=== PATIENT | male | born 1955 | race Caucasian/White ===

== ENCOUNTER 2025-09-07 13:12 | Outpatient (OUT) | payer OTHER, SELFPAY ==
--- OUTSIDE RECORDS SUMMARY | 2025-09-07 13:21 | XMS_ITS | Clinical Summary ---
Author Organization [facility] Healthcare Address [address] [place] [address] Care Team Providers Care Network Solutions Architect Name Role Phone Beverly Pinto MD Unavailable Beverly Pinto MD Primary Care Provider [phone] Allergies No known active allergies Medications MedicationSigDispense QuantityRefillsLast FilledStart DateEnd DateStatus lisinopril 40 MG tablet Indications:Essential (primary) hypertensionTAKE 1 TABLET BY MOUTH EVERY DAY IN THE MORNING 100 tablet 5Active tamsulosin (Flomax) 0.4 MG 24 hr capsule Take 0.4 mg by mouth in the morning and 0.4 mg before bedtime.Active fluticasone (Flonase) 50 MCG/ACT nasal spray Indications:Non-seasonal allergic rhinitis due to pollenADMINISTER 1-2 SPRAYS INTO EACH NOSTRIL DAILY SHAKE GENTLY. AFTER USE, CLEAN TIP AND REPLACE CAP 48 mL 1105Active cephalexin (Keflex) 500 MG capsule Twice daily5Active Active Problems ProblemNoted DateDiagnosed DateAbdominal mass04/12/20255246Nxexiavuafvfyk97/10/2025 History of colon xkarqb1704/12/2025Hx of diverticulitis of colon04/12/2025Left lower quadrant pain04/12/2025Rectal /10/2025Renal cyst04/12/2025PH with urinary ojrzeeedrhu35/27/2025Elevated PSA02/27/20258657Xeejvb87/27/2025 Diverticulitis of large intestine without perforation or abscess with bleeding 12/18/2024 Assessment & Plan (05/15/2025 4:48 PM EDT): symptoms resolved. Okay to resume fiber in diet. Advised to schedule with gen sx Benign essential upqzlniorylg78/05/2024 Assessment & Plan (05/15/2025 4:48 PM EDT): good control Mixed tndxnxdjtpogjk00/05/2024Solitary pulmonary wrvygk3311/08/2023Tobacco isykvmwdxe98/05/2024 Encounters DateTypeDepartmentCare UpmiOyasurwbebf05/19/2025 11:30 AM ESTOffice Visit [facility] [address] [facility] [place] [phone] Jessica Stewart NP Acute urinary retention (Primary Dx); Acute kidney psukvc7908/22/2025amboo flowsheet [facility] [address] [place] [facility] [place] [phone] Jessica Stewart NP 08/22/20258307Sjzzfd32/14/2025Orders Only [facility] [address] [place] [facility] [place] [phone] Beverly Pinto MD from Last 3 Months Immunizations ImmunizationAdministration DatesNext DueInfluenza, High Dose Seasonal, Preservative Free07/21/2022Influenza, High-dose Seasonal, Quadrivalent, Preservative Free07/21/2022Influenza, Seasonal, Quadrivalent, Adjuvanted 09/25/2023,08/05/2021,07/07/2020Influenza, injectable, MDCK, preservative free, zckwqkvjlyau90/07/2017Influenza, injectable, quadrivalent, preservative free 08/05/2015Influenza, trivalent, skfvipmwua29/11/2024,06/13/2019,07/07/2018 Pneumococcal Conjugate PCV 13001/12/2019Pneumococcal Polysaccharide PPSV23 07/29/2020Zoster, Bvpgewqqwkn83/11/2019,06/13/2019 Social History Tobacco UseTypesPacks/DayYears UsedDateSmoking Tobacco: Every RrpSqwtdjuirv722 Smokeless Tobacco: NeverAlcohol UseStandard Drinks/WeekCommentsNot Currently0 (1 standard drink = 0.6 oz pure alcohol)PHQ-2AnswerDate RecordedPatient Health Questionnaire-2 Qhdyh504Sex and Gender InformationValueDate RecordedSex Assigned at BirthNot on fileLegal GcnXcca5012/16/2022 6:38 PM EDTGender Identity Not on fileSexual OrientationNot on file Last Filed Vital Signs Vital SignReadingTime TakenCommentsBlood Dnnkqcxm612/80110/22/2024 11:24 AM EST Uhaal582508/22/2025 11:24 AM LTRKuhobzlhlfs60.3 ??C (97.3 ??F)08/22/2025 11:24 AM ESTRespiratory Ozbl432405/15/2025 8:02 AM EDTOxygen Lyuahzjort79%08/22/2025 11:24 AM ESTInhaled Oxygen Concentration--Fuytjz12.8 kg (164 lb 12.8 oz)08/22/2025 11:24 AM TJGWgkefd662.9 cm (6')05/15/2025 8:02 AM EDTBody Mass Index22.35 05/15/2025 8:02 AM EDT Plan of Treatment DateTypeDepartmentCare Team (Latest Contact Info)Qflyesnmmku55/04/2026 9:00 AM ESTOffice Visit [facility] [address] [place] [phone] Beverly Pinto MD [address] [place] [address] Health MaintenanceDue DateLast DoneCommentsCT Mlusgcbdihzt1953FIT-DNA 1953FIT1953FOBT1953Lung Cancer Screening Shared Decision Hcykxd58 1955 6030Ombdepgiquogu1953OVID-19 Vaccine ( season) , 08/29/2021, 12/09/2020Influenza Vaccine (#1)2025 08/14/2024, 09/25/2023, 07/21/2022, Additional history existsMedicare Annual Wellness (AWV), 11/08/2023, 11/08/2023, Additional history gtjppwHjfrfplzqni38/14/373325, 09/04/2015Colorectal Cancer Screening 07/17/2035Pneumococcal Vaccine: 65+ ShegbTuqvohdqx85/26/2020, 01/12/2019 Procedures Procedure NamePriorityDate/TimeAssociated DiagnosisCommentsHM COLONOSCOPYRoutine 07/17/2025 1:05 PM EDTfrom Last 3 Months Results * Hm Colonoscopy (07/17/2025 1:05 PM EDT)Anatomical RegionLateralityModality Other Narrative Authorizing ProviderResult TypeResult StatusBeverly Pinto MDHEALTH MAINTENANCE Final Result from Last 3 Months Insurance Care Teams Team MemberRelationshipSpecialtyStart DateEnd Date Beverly Pinto MD [address] [place] [address] PCP - [facility]10/04/21 Beverly Pinto MD [address] [place] [address] [facility]
[2025-09-07 14:21] LABS: Anion Gap 11.0; Blood Urea Nitrogen 11.0 mg/dL (7.0-18.0); Calcium 9.1 mg/dL (8.5-10.1); Carbon Dioxide 30.0 mmol/L (21.0-32.0); Chloride 104 mmol/L (98-107); Estimated GFR (African America >60 (>=60 mL/min/1.73m^2); Estimated GFR (Non-African Ame 52 (>=60 mL/min/1.73m^2); Glucose 157 mg/dL (74-106); Potassium 4.0 mmol/L (3.5-5.1); Sodium 141 mmol/L (136-145)
[2025-09-07 14:23] LABS: INR 1.09; Partial Thromboplastin Time 30.7 sec (22.3-36.2); Prothrombin Time 11.4 sec (9.0-11.6)
[2025-09-07 14:27] LABS: Hematocrit 42.8 % (42.0-54.0); Hemoglobin 13.9 g/dL (14.0-18.0); Immature Granulocytes Abs Auto 0.02 10^3/uL (0.00-0.03); Immature Granulocytes Pct Auto 0.4 % (0.0-0.5); Lymphocytes Absolute Auto 1.4 10^3/uL (1.2-3.8); Mean Corpuscular HGB Conc 32.5 g/dL (29.9-35.2); Mean Corpuscular Hemoglobin 30.2 pg (25.9-34.0); Mean Corpuscular Volume 92.8 fL (80.0-94.0); Platelet Count 281 10^3/uL (150-450); Red Blood Count 4.61 10^6/uL (4.70-6.10); White Blood Count 5.4 10^3/uL (4.0-11.0)
== END 2025-09-07 13:13 | disposition home or self-care (01) ==
LOC: PST 13:17
PROVIDERS: PCP Family Medicine; Visit Provider Urology
DX: Z01.812 Encounter for preprocedural laboratory examination (principal); N40.1 Benign prostatic hyperplasia with lower urinary tract symptoms
CPT/HCPCS: 36415; 80048; 85025; 85610; 85730

== ENCOUNTER 2025-09-13 11:50 | Day surgery (SDC) | payer OTHER, SELFPAY ==
[2025-09-07 13:46] VITALS: BP 153/87; PULSE 68; TEMP 36.2; O2SAT 96; BMI 20.8
[2025-09-13] VITALS (17 sets, daily range): BP systolic 104–162; BP diastolic 62–104; PULSE 72–88; TEMP 36.1–36.6; O2SAT 92–98; BMI 20.7
[2025-09-13] MEDS: LEVOFLOXACIN 500 MG/100 ML-D5W PREMIX 100 MG IV (14:54)
--- NOTE | 2025-09-13 17:24 | P.URON_ITS ---
Urology Surgery Operative Note Operative Note Procedure Date: 09/13/25 Time Out Performed: yes Pre-op Diagnosis: BPH with LUTS and urinary retention Post-op Diagnosis: same as pre-op Procedures performed: 1. Cystoscopy. 2. Transurethral resection of the prostate. Anesthesia: GETA Primary Surgeon: Tl Suarez Complications: None Estimated blood loss (mL): 25 Findings: Enormous median lobe totally obstructing his bladder outlet and protruding dramatically into the bladder. Specimens: Prostate chips Drains: 24 Nigerian three-way coud? Plaza catheter in the bladder taped to traction and CBI Indications for Procedures: This gentleman has BPH with LUTS and urinary retention. Endoscopy revealed that he had an enormous median lobe coapting anteriorly obstructing his bladder outlet and protruding into the bladder. He now presents for cystoscopy and TURP. He has signed an informed consent after risks were explained. Some of these include bleeding, infection, anesthesia, urinary incontinence both temporary and permanent, erectile dysfunction, persistent urinary retention and retrograde ejaculation along with possible need for other procedures to name a few. Detailed description of Procedure: The patient was brought to the operating room and placed on the operating room table in the supine position. SCDs were placed on the lower extremities and turned on and functioning during the entire case. Timeout was done by all parties in the room. We all agreed upon the patient's identification and the planned procedures for this patient. Genn. anesthesia was then administered. The patient was then repositioned into the modified dorsal lithotomy position. All pressure points were satisfactorily padded. Genitalia were sterilely prepped and draped in usual fashion. I started by passing a 26 Nigerian Olympus resectoscope with a standard bipolar loop electrode per urethra and into the bladder. His enormous median lobe was totally obstructing his bladder outlet. I was unable to identify the ureteral orifices because they were tucked under this capacious median lobe. I started on top of the median lobe and uniformly resected this down to the bladder neck level. This was rather dramatic and there was a very large amount of tissue in the form of chips created from this resection of the median lobe. I resected for over an hour and a half. I was then able to identify the ureteral orifices. These were marked with a loop electrode. I then resected posteriorly from the bladder neck to the veru. Intermittent coagulation had to be done continuously due to bleeding. I used the vaporization loop to maintain hemostasis and to do some resection. The lateral lobes although capacious they were not obstructing. I simply coagulated them because they started bleeding from the scope. The [employer] evacuator was used to get all of the chips out of the bladder. These were sent for permanent sections. Upon completion the prostate and bladder neck were wide open and there was no bleeding from the prostate. There were no chips remaining in the bladder. The ureteral orifices were untouched. The scope was then removed. A 24 Nigerian three-way coud? Plaza catheter was then easily placed into the bladder. It was manually irrigated with a Arias syringe to verify correct placement. 30 cc of fluid was placed in the balloon. It was taped to traction and CBI was started. It irrigated clear to light pink. The anesthetic was then reversed. The patient was then transferred [facility] a [facility] and wheeled to PACU in stable condition. Urinary Catheter Management Urinary Catheter Management Urethral: Cath placed during this visit: no
[2025-09-13] MEDS: SOLIFENACIN SUCCINATE 10 MG TABLET PO (17:47)
[2025-09-13] MEDS: HYDROCODONE/ACET 5-325 MG TABLET 1 TAB PO ×2 (17:52→22:15)
[2025-09-13] MEDS: SODIUM CHLORIDE IRRIG SOLUTION 3,000 ML 3000 ML IRR ×6 (17:59→23:25)
[2025-09-13] MEDS: 0.9 % SODIUM CHLORIDE 1,000 ML 80 ML IV (19:47)
[2025-09-13] MEDS: CEFAZOLIN SODIUM/DEXTROSE,ISO 1 GM/50 ML PREMIX IV (19:49)
[2025-09-13] MEDS: PHENAZOPYRIDINE 100 MG TABLET 200 MG PO (22:15)
[2025-09-14] MEDS: SODIUM CHLORIDE IRRIG SOLUTION 3,000 ML 3000 ML IRR ×2 (00:55→02:08)
[2025-09-14] MEDS: CEFAZOLIN SODIUM/DEXTROSE,ISO 1 GM/50 ML PREMIX IV (02:09)
[2025-09-14 03:31] VITALS: BP 110/68; PULSE 61; TEMP 36.3; O2SAT 93
[2025-09-14 07:34] VITALS: BP 107/70; PULSE 77; TEMP 36.2; O2SAT 93
[2025-09-14] MEDS: SOLIFENACIN SUCCINATE 10 MG TABLET PO (08:02)
--- NOTE | 2025-09-14 11:35 | PC.NURSE ---
discharge instructions given to pt. verbalized understanding. pt stated he knows how to empty the leg bag and refused education on drainage bag, stated i'm not going to use it iv dc'd, awaiting ride.
== END 2025-09-14 12:25 | disposition home or self-care (01) ==
LOC: SURGOUT 11:50 → MS 18:21
PROVIDERS: PCP Family Medicine; Visit Provider Urology
PROC: (CPT 52601; principal; 2025-09-13 13:45)
DX: N40.1 Benign prostatic hyperplasia with lower urinary tract symptoms (principal); R33.9 Retention of urine, unspecified; R31.9 Hematuria, unspecified; R97.20 Elevated prostate specific antigen [PSA]; I10 Essential (primary) hypertension; F17.210 Nicotine dependence, cigarettes, uncomplicated
CPT/HCPCS: 52601; 36415; 88305; J0690; J1100; J2250; J2371; J2405; J2704; J3010